=== PATIENT | female | born 1960 | race Two or more races ===

== ENCOUNTER 2018-11-10 06:46 | Outpatient (CLI) | payer OTHER | END 2018-11-10 06:50 | disposition home or self-care (01) | LOC: LAB 06:46 | DX: Z00.00 Encounter for general adult medical examination without abnormal findings (principal); I10 Essential (primary) hypertension; E78.00 Pure hypercholesterolemia, unspecified; Z01.818 Encounter for other preprocedural examination; E03.8 Other specified hypothyroidism ==

== ENCOUNTER 2018-11-10 08:14 | Outpatient (CLI) | payer OTHER | END 2018-11-10 08:30 | disposition home or self-care (01) | LOC: RAD 08:14 | DX: Z01.818 Encounter for other preprocedural examination (principal); N64.59 Other signs and symptoms in breast; N94.0 Mittelschmerz; R10.2 Pelvic and perineal pain; N94.89 Other specified conditions associated with female genital organs and menstrual cycle; N64.89 Other specified disorders of breast ==

== ENCOUNTER 2018-11-28 12:12 | Outpatient (CLI) | payer OTHER | END 2018-11-28 12:14 | disposition home or self-care (01) | LOC: MAMO-SONO 12:12 | DX: N62 Hypertrophy of breast (principal) ==

== ENCOUNTER → 2018-12-18 | Day surgery (SDC) | payer OTHER ==
[~2018-12-18] MED LIST: COZAAR50 MG PO; DIALYVITE TABL1 EACH PO; HYDROCHLOROTHIA25 MG PO; LEVO-T25 MCG PO; PLAQUENIL PO
== END | disposition home or self-care (01) ==
LOC: ADM 12-15 13:30 → CIR.AMB 05:42
DX: N85.02 Endometrial intraepithelial neoplasia [EIN] (principal); N84.0 Polyp of corpus uteri

== ENCOUNTER 2019-03-01 07:54 | Outpatient (CLI) | payer OTHER | END 2019-03-01 09:27 | disposition home or self-care (01) | LOC: LAB 07:54 | DX: E03.8 Other specified hypothyroidism (principal); I10 Essential (primary) hypertension; Z00.00 Encounter for general adult medical examination without abnormal findings; E78.00 Pure hypercholesterolemia, unspecified ==

== ENCOUNTER 2019-03-08 07:08 | Outpatient (CLI) | payer OTHER | END 2019-03-08 10:42 | disposition home or self-care (01) | LOC: EKG 07:08 → LAB 07:08 → EKG 10:42 | DX: Z01.818 Encounter for other preprocedural examination (principal) ==

== ENCOUNTER 2019-03-09 11:18 | Inpatient (IN) | payer OTHER ==
[~2019-03-09] VITALS: Ht 160 cm; Wt 152.0 kg
[2019-03-12] MEDS ORDERED: HYDROXYCHLOROQ200 MG PO (10:14)
[2019-03-15] MEDS ORDERED: IBUPROFEN800 MG PO (06:54)
[2019-03-15] MEDS ORDERED: GABAPENTIN600 MG PO (06:54)
[2019-03-15] MEDS ORDERED: DUI500 PO (06:55)
== END 2019-03-15 08:55 | disposition home or self-care (01) | DRG 741 ==
LOC: OB/GYN 11:45 → O/R 03-12 05:48 → OB/GYN 03-12 11:45
PROVIDERS: ADMIT Obstetrics & Gynecology
PROC: 0UT20ZZ Resection of Bilateral Ovaries, Open Approach (ICD-10-PCS; 2019-03-12)
PROC: 0UT70ZZ Resection of Bilateral Fallopian Tubes, Open Approach (ICD-10-PCS; 2019-03-12)
PROC: 0UT90ZZ Resection of Uterus, Open Approach (ICD-10-PCS; principal; 2019-03-12 09:00)
DX: C54.1 Malignant neoplasm of endometrium (principal)

== ENCOUNTER 2020-05-05 09:24 | Outpatient (CLI) | payer OTHER ==
[~2020-05-05 09:24] MED LIST changes: +DUI500 PO; +GABAPENTIN600 MG PO; +HYDROXYCHLOROQ200 MG PO; +IBUPROFEN800 MG PO
== END 2020-05-05 09:27 | disposition home or self-care (01) ==
LOC: SONOGRAMA 09:24
PROVIDERS: ATTEND Pathology Anatomic Pathology & Clinical Pathology
DX: E04.1 Nontoxic single thyroid nodule (principal)